=== PATIENT | male | born 1955 | race Hispanic/Latino ===

== ENCOUNTER → 2021-07-19 | Outpatient (CLI) | payer MEDICARE ==
[~2021-07-19] VITALS: Ht 162.6 cm; Wt 54.0 kg
[~2021-07-19] MED LIST: REGADENOSON 0.4 MG/5 ML PF SYG IVP SCH
== END | disposition home or self-care (01) ==
LOC: SHCH 08:44
PROVIDERS: ATTEND Internal Medicine Cardiovascular Disease
DX: R55 Syncope and collapse (principal)
CPT/HCPCS: 78452; 93017; 96374; A9500 ×2; J2785

== ENCOUNTER 2021-11-05 08:36 | Day surgery (SDC) | payer MEDICARE ==
[2021-10-31 13:06] LABS: BASOPHILS % (AUTO) 0.4 % (0.0-5.0); EOSINOPHILS % (AUTO) 3.4 % (0.0-8.0); HEMATOCRIT 44.4 % (42-54); LYMPHOCYTES % (AUTO) 19.9 % (21.0-51.0); MEAN CORPUSCULAR HEMOGLOBIN 34.3 pg (27.0-33.0); MEAN CORPUSCULAR HGB CONC 33.8 g/dL (32.0-36.0); MEAN CORPUSCULAR VOLUME 101.6 fL (79-99); MONOCYTES % (AUTO) 11.6 % (3.0-13.0); NEUTROPHILS % (AUTO) 64.6 % (40.0-77.0); PLATELET COUNT (AUTO) 174 K/uL (130-400); RED BLOOD CELL COUNT(AUTO) 4.37 MIL/uL (4.50-6.20); RED CELL DISTRIBUTION WIDTH 12.1 % (11.0-15.5)
[2021-10-31 13:08] LABS: APPEARANCE,URINE Cloudy (CLEAR); BILIRUBIN,URINE Negative (NEGATIVE); COLOR,URINE Yellow (YELLOW); GLUCOSE, URINE (UA) Negative (NEGATIVE); KETONES,URINE Negative (NEGATIVE); LEUKOCYTE ESTERASE ,URINE Negative (NEGATIVE); NITRATE,URINE Negative (NEGATIVE); OCCULT BLOOD,URINE Negative (NEGATIVE); PH,URINE 6.5 (5.0-8.0); PROTEIN,URINE Negative (NEGATIVE); UROBILINOGEN,URINE 0.2 mg/dL (0.2-1.0)
[2021-10-31 13:12] LABS: CREATININE 0.8 mg/dL (0.5-1.5); POTASSIUM 4.1 mmol/L (3.5-5.1)
[2021-10-31 13:47] LABS: BACTERIA,URINE Rare /HPF (None Seen); RBC,URINE 0-1 /HPF (0-1); SQUAMOUS EPITHELIAL CELL,UR Few /HPF (0-2); WBC,URINE 0-1 /HPF (0-1)
[2021-10-31 13:51] LABS: INR 0.98 (0.85-1.15); PROTHROMBIN TIME 10.7 SEC (9.6-11.6)
[2021-10-31 13:52] LABS: PARTIAL THROMBOPLASTIN TIME 28.8 SEC (26.3-35.5)
[2021-11-04 11:35] VITALS: BP 140/69
[~2021-11-05] VITALS: Ht 162.6 cm; Wt 53.5 kg
[~2021-11-05 08:36] MED LIST changes: +AEC81 PO; +BUSP15TA3 PO; +DULO30CA52 PO; +FENO145T26 PO; +LISI5TAB21 PO; +METO50TA18 PO; -REGADENOSON 0.4 MG/5 ML PF SYG IVP SCH; +ROSU20TA23 PO; +TRAZ-187 PO; +VITAD50000 PO
== END 2021-11-05 09:45 | disposition home or self-care (01) ==
LOC: DAH 08:36
PROVIDERS: ATTEND Internal Medicine Cardiovascular Disease
DX: R07.9 Chest pain, unspecified (principal); Z79.01 Long term (current) use of anticoagulants; Z95.1 Presence of aortocoronary bypass graft; Z53.8 Procedure and treatment not carried out for other reasons
CPT/HCPCS: 36415; 71045; 80048; 81001; 85025; 85610; 85730; 93005

== ENCOUNTER 2021-11-12 12:36 | Inpatient (IN) | payer MEDICARE ==
[~2021-11-12] VITALS: Ht 162.6 cm; Wt 51.6 kg
[2021-11-12 14:22] LABS: BASOPHILS % (AUTO) 0.6 % (0.0-5.0); EOSINOPHILS % (AUTO) 3.4 % (0.0-8.0); HEMATOCRIT 43.3 % (42-54); MEAN CORPUSCULAR HEMOGLOBIN 34.8 pg (27.0-33.0); MEAN CORPUSCULAR HGB CONC 34.4 g/dL (32.0-36.0); MEAN CORPUSCULAR VOLUME 101.2 fL (79-99); MONOCYTES % (AUTO) 14.7 % (3.0-13.0); NEUTROPHILS % (AUTO) 62.2 % (40.0-77.0); PLATELET COUNT (AUTO) 201 K/uL (130-400); RED BLOOD CELL COUNT(AUTO) 4.28 MIL/uL (4.50-6.20); RED CELL DISTRIBUTION WIDTH 12.1 % (11.0-15.5); WHITE BLOOD COUNT (AUTO) 6.9 K/uL (4.8-10.8)
[2021-11-12 14:44] LABS: HEMOGLOBIN A1C 5.3 % (4.0-6.0)
[2021-11-12 14:55] LABS: CREATININE 0.8 mg/dL (0.5-1.5); POTASSIUM 4.2 mmol/L (3.5-5.1)
[2021-11-12 15:04] LABS: ALBUMIN 3.9 g/dL (3.5-5.0); BILIRUBIN,TOTAL 0.4 mg/dL (0.2-1.0); MAGNESIUM 2.3 mg/dL (1.80-2.40); TOTAL PROTEIN, SERUM 7.2 g/dL (6.0-8.3)
[2021-11-12] MEDS ORDERED: ONDANSETRON 4MG INJ IV PRN (17:00)
[2021-11-12] MEDS ORDERED: ACETAMINOPHEN 325 MG TAB PO PRN ×2 (17:00)
[2021-11-12] MEDS ORDERED: DEXTROSE 50%-WATER 50 ML DISP.SYRIN IV PRN (17:00)
[2021-11-12] MEDS ORDERED: GLUCAGON 1MG KIT 1 MG ML IM PRN (17:00)
[2021-11-12 19:30] VITALS: BP 152/74
[2021-11-12] MEDS ORDERED: FAMOTIDINE 20MG TAB PO SCH (21:00)
[2021-11-12] MEDS: INSULIN HUMULIN R 100 UNIT/ML 3ML SQ SCH (21:00)
[2021-11-12] MEDS: METOPROLOL TARTRATE 25 MG TAB PO SCH (21:29)
[2021-11-12] MEDS: ATORVASTATIN 20 MG TABLET PO SCH (21:29)
[2021-11-12] MEDS ORDERED: PANT40TA PO (22:11)
[2021-11-12] MEDS ORDERED: FOLI20CA PO (22:11)
[2021-11-12] MEDS ORDERED: ONDA4TAB4 PO (22:11)
[2021-11-12] MEDS ORDERED: METO25TA6 PO (22:11)
[2021-11-12] MEDS ORDERED: NITR0.4T50 SL (22:11)
[2021-11-12] MEDS ORDERED: LISI2.5T13 PO (22:11)
[2021-11-13] VITALS (19 sets, daily range): BP systolic 111–156; BP diastolic 65–93
[2021-11-13] MEDS: INSULIN HUMULIN R 100 UNIT/ML 3ML SQ SCH ×4 (07:30→20:32)
[2021-11-13] MEDS ORDERED: LISINOPRIL 2.5 MG TABLET PO SCH (09:00)
[2021-11-13] MEDS ORDERED: PANTOPRAZOLE 40 MG TAB DR PO SCH (09:00)
[2021-11-13 09:44] LABS: PROTHROMBIN TIME 10.9 SEC (9.6-11.6)
[2021-11-13 09:45] LABS: PARTIAL THROMBOPLASTIN TIME 27.6 SEC (26.3-35.5)
[2021-11-13] MEDS: METOPROLOL TARTRATE 25 MG TAB PO SCH ×2 (10:00→20:33)
[2021-11-13] MEDS ORDERED: HEPARIN 10,000 UNIT/10ML (1,000 UNIT/ML) VIAL ONE (10:30)
[2021-11-13] MEDS ORDERED: SODIUM BICARB 50MEQ 50ML VIAL 50 ML ONE ×2 (10:30→12:25)
[2021-11-13] MEDS ORDERED: IOHEXOL 350 MG/ML 100ML INFUS..BTL IV ONE (10:30)
[2021-11-13] MEDS ORDERED: NITROGLYCERIN 2 MG VIAL IV ONE (10:30)
[2021-11-13] MEDS ORDERED: FENTANYL CITRATE PF 50 MCG/1 ML 2ML VIAL ONE (10:31)
[2021-11-13] MEDS ORDERED: MIDAZOLAM HCL 1 MG/ML 2ML VIAL ONE (10:31)
[2021-11-13] MEDS ORDERED: LIDOCAINE HCL 400MG/20ML VIAL ONE ×2 (10:31→12:26)
[2021-11-13] MEDS ORDERED: NICARDIPINE 25MG INJ IV ONE (12:20)
[2021-11-13] MEDS: ATORVASTATIN 20 MG TABLET PO SCH (20:33)
[2021-11-14 04:43] VITALS: BP 137/73
== END 2021-11-14 08:00 | disposition left against medical advice (07) | DRG 287 ==
LOC: EDH 12:36 → EDHIP 12:37 → 2DH 18:12
PROVIDERS: ADMIT Hospitalist; ATTEND Hospitalist
PROC: 4A023N6 Measurement of Cardiac Sampling and Pressure, Right Heart, Percutaneous Approach (ICD-10-PCS; principal; 2021-11-13)
PROC: B2111ZZ Fluoroscopy of Multiple Coronary Arteries using Low Osmolar Contrast (ICD-10-PCS; 2021-11-13)
DX: I25.709 Atherosclerosis of coronary artery bypass graft(s), unspecified, with unspecified angina pectoris (principal); I27.20 Pulmonary hypertension, unspecified; R55 Syncope and collapse; E11.42 Type 2 diabetes mellitus with diabetic polyneuropathy; E78.5 Hyperlipidemia, unspecified; F17.200 Nicotine dependence, unspecified, uncomplicated; I10 Essential (primary) hypertension; E11.51 Type 2 diabetes mellitus with diabetic peripheral angiopathy without gangrene; Z53.29 Procedure and treatment not carried out because of patient's decision for other reasons; K21.9 Gastro-esophageal reflux disease without esophagitis; Z88.0 Allergy status to penicillin; Z88.5 Allergy status to narcotic agent; Z95.5 Presence of coronary angioplasty implant and graft; Z82.49 Family history of ischemic heart disease and other diseases of the circulatory system
CPT/HCPCS: 36415; 71045; 80053; 80061; 82948; 83036; 83735; 85025; 85610; 85730; 93005; 93451; 99156; 99157; C1769; C1894; G0378; J1644; J2250; J3010; J3490; Q9967

== ENCOUNTER 2024-09-13 13:36 | Emergency (ER) | payer MEDICARE ==
[~2024-09-13] VITALS: Ht 165.1 cm; Wt 72.6 kg
[~2024-09-13 13:36] MED LIST changes: +FOLI20CA PO; +LISI2.5T13 PO; -LISI5TAB21 PO; +METO25TA6 PO; +NITR0.4T50 SL; +ONDA4TAB4 PO; +PANT40TA PO
[2024-09-13 14:15] LABS: BASOPHILS # (AUTO) 0.03 K/uL (0.00-0.20); BASOPHILS % (AUTO) 0.2 % (0.0-5.0); EOSINOPHILS # (AUTO) 0.01 K/uL (0.00-0.70); EOSINOPHILS % (AUTO) 0.1 % (0.0-8.0); HEMATOCRIT 32.8 % (42-54); IMMATURE GRANULOCYTE ABSOLUTE 0.08 K/uL (0-1); LYMPHOCYTES # (AUTO) 0.7 K/uL (1.0-4.8); LYMPHOCYTES % (AUTO) 4.3 % (21.0-51.0); MEAN CORPUSCULAR HGB CONC 34.1 g/dL (32.0-36.0); MEAN CORPUSCULAR VOLUME 93.7 fL (79-99); MONOCYTES # (AUTO) 0.7 K/uL (0.1-1.0); MONOCYTES % (AUTO) 4.3 % (3.0-13.0); NEUTROPHILS # (AUTO) 14.6 K/uL (1.8-7.7); NEUTROPHILS % (AUTO) 90.6 % (40.0-77.0); PLATELET COUNT (AUTO) 329 K/uL (130-400); RED CELL DISTRIBUTION WIDTH 13.2 % (11.0-15.5); WHITE BLOOD COUNT (AUTO) 16.1 K/uL (4.8-10.8)
[2024-09-13 14:24] LABS: CREATININE 1.3 mg/dL (0.5-1.3)
[2024-09-13] MEDS ORDERED: ZOSYN 3.375GM +NS 50ML IV STA (15:21)
[2024-09-13] MEDS ORDERED: [UNRECOGNIZED DRUG - REMARK] MISC SCH (15:30)
[2024-09-13] MEDS: 0.9%NACL 1000ML 1,000 ML IV ONE (15:48)
[2024-09-13] MEDS: ceFEPime HCL 2 GM VIAL IVPB SCH (15:48)
[2024-09-13 17:00] LABS: APPEARANCE,URINE CLEAR (CLEAR); BILIRUBIN,URINE NEGATIVE (NEGATIVE); COLOR,URINE LIGHT-YELLOW (YELLOW); GLUCOSE, URINE (UA) NEGATIVE (NEGATIVE); KETONES,URINE NEGATIVE (NEGATIVE); LEUKOCYTE ESTERASE ,URINE NEGATIVE Leu/uL (NEGATIVE); NITRATE,URINE NEGATIVE (NEGATIVE); OCCULT BLOOD,URINE NEGATIVE (NEGATIVE); PROTEIN,URINE TRACE mg/dL (NEGATIVE); UROBILINOGEN,URINE 0.2 mg/dL (0.2-1.0)
[2024-09-13 17:01] LABS: ADD UA MICROSCOPIC YES
[2024-09-13 17:03] LABS: BACTERIA,URINE Rare /HPF (None Seen); MUCUS,URINE Rare LPF (None Seen); SQUAMOUS EPITHELIAL CELL,UR Many /HPF (0-2)
[2024-09-13 18:22] VITALS: BP 124/72; PULSE 96; RESP 20; TEMP 98.1; O2SAT 98
== END 2024-09-13 18:32 | disposition home or self-care (01) ==
LOC: EDH 13:36
DX: R53.1 Weakness (principal); E78.00 Pure hypercholesterolemia, unspecified; F03.94 Unspecified dementia, unspecified severity, with anxiety; F20.9 Schizophrenia, unspecified; I10 Essential (primary) hypertension; I48.91 Unspecified atrial fibrillation; I49.1 Atrial premature depolarization; Z79.82 Long term (current) use of aspirin; Z79.899 Other long term (current) drug therapy; Z86.73 Personal history of transient ischemic attack (TIA), and cerebral infarction without residual deficits; Z88.0 Allergy status to penicillin; Z88.5 Allergy status to narcotic agent
CPT/HCPCS: 99285; 96365; 70450; 71045; 82550; 84484; 80048; 83880; 85025; 87040; 83605; 81001; 36415; 93005; J7030; J0692